=== PATIENT | male | born 1965 | race African-American/Black ===

== ENCOUNTER 2023-02-13 12:55 | Emergency (ER) | payer BC, MEDICAID ==
[~2023-02-13] VITALS: Ht 177.8 cm; Wt 97.0 kg
[2023-02-13 13:06] VITALS: O2SAT 100
[2023-02-13] MEDS ORDERED: AMOX1TAB16 MT (14:04)
[2023-02-13] MEDS ORDERED: TETRACAINE 0.5% OPHTH DROPS 4ML LEFTEYE ONE (14:15)
[2023-02-13 15:59] VITALS: BP 157/97; PULSE 64; RESP 20; TEMP 98.2
== END 2023-02-13 16:00 | disposition home or self-care (01) ==
LOC: ER 13:13
DX: J32.9 Chronic sinusitis, unspecified (principal)
CPT/HCPCS: 99283

== ENCOUNTER → 2023-10-29 | Emergency (ER) | payer BC, MEDICAID ==
[~2023-10-29] VITALS: Ht 177.8 cm; Wt 99.0 kg
[~2023-10-29] MED LIST: AMOX1TAB16 MT; IBUP-2028 MT
[2023-10-29 09:24] VITALS: TEMP 98.2; O2SAT 96
[2023-10-29 10:40] VITALS: BP 121/85; PULSE 74; RESP 17
== END ==
LOC: ER 09:14
DX: M79.644 Pain in right finger(s) (principal)
CPT/HCPCS: 73140; 99283

== ENCOUNTER 2024-01-01 09:35 | Emergency (ER) | payer OTHER ==
[~2024-01-01] VITALS: Ht 177.8 cm; Wt 100.0 kg
[2024-01-01 10:06] VITALS: O2SAT 99
[2024-01-01 10:47] LABS: CLARITY URINE CLEAR (CLEAR); COLOR URINE YELLOW (YELLOW); GLUCOSE URINE NEGATIVE (NEGATIVE); KETONES URINE NEGATIVE (NEGATIVE); LEUKOCYTE ESTERASE URINE NEGATIVE (NEGATIVE); NITRITE URINE NEGATIVE (NEGATIVE); OCCULT BLOOD URINE NEGATIVE (NEGATIVE); PH URINE 5.5 (4.5-8.0); PROTEIN URINE NEGATIVE (NEGATIVE); UROBILINOGEN URINE 0.2 E.U./dL (0.2-1.0)
[2024-01-01 10:48] LABS: BASOPHILS % 0.7 % (0.0-2.0); EOSINOPHILS % 3.3 % (0.0-5.0); HEMATOCRIT. 46.4 % (42.0-52.0); HEMOGLOBIN. 14.8 g/dL (14.0-18.0); LYMPHOCYTES % 38.2 % (20.0-50.0); MEAN CORPUSCULAR HEMOGLOBIN 26.4 pg (28.0-32.0); MEAN CORPUSCULAR HGB CONC 31.9 g/dL (31.0-37.0); MEAN CORPUSCULAR VOLUME 82.9 fL (80.0-94.0); MONOCYTES % 8.6 % (2.0-8.0); NEUTROPHILS % 49.2 % (40.0-76.0); PLATELET 277 x1000/uL (130-400); RED BLOOD CELL COUNT 5.59 mill/uL (4.7-6.1); RED CELL DISTRIBUTION WIDTH 14.8 % (11.6-14.6); WHITE BLOOD COUNT 4.3 x1000/uL (4.5-11.0)
[2024-01-01 10:57] LABS: CHLORIDE 107 mEq/L (98-107); POTASSIUM 4.5 mEq/L (3.5-5.1); SODIUM 141 mEq/L (136-145)
[2024-01-01 10:58] LABS: CALCIUM 9.6 mg/dL (8.7-10.4); CARBON DIOXIDE 28 mEq/L (21-32)
[2024-01-01 11:03] LABS: GLUCOSE 97 mg/dL (70-105); UREA NITROGEN BLOOD 12 mg/dL (9-23)
[2024-01-01 11:05] LABS: ALANINE AMINOTRANSFERASE 25 IU/L (10-49); ALBUMIN 4.7 g/dL (3.2-4.8); ASPARTATE AMINOTRANSFERASE 26 IU/L (<34)
[2024-01-01 11:06] LABS: BILIRUBIN DIRECT 0.1 mg/dL (<=3.0); BILIRUBIN TOTAL 0.6 mg/dL (0.1-1.0); PROTEIN TOTAL 7.5 g/dL (6.0-8.3)
[2024-01-01 11:24] VITALS: BP 143/95; PULSE 64; RESP 14; TEMP 37.05852; O2SAT 99
== END 2024-01-01 11:15 | disposition home or self-care (01) ==
LOC: ER 09:35
DX: R10.9 Unspecified abdominal pain (principal); Z87.19 Personal history of other diseases of the digestive system
CPT/HCPCS: 36415; 80048; 80076; 81003; 85025; 99283